=== PATIENT | female | born 1970 | race Caucasian/White ===

== ENCOUNTER 2018-07-30 10:55 | Emergency (ER) | payer MEDICAID ==
[2018-07-30 11:19] VITALS: O2SAT 100
[2018-07-30] MEDS ORDERED: DiphenhydrAMINE 50 mg/ml Inj IVP STA (13:17)
--- NOTE | 2018-07-30 13:17 | C.PDOC ---
History Of Present Illness 47 year old female with a PMHx of chronic headache presents to the ED for evaluation of headache associated with photophobia and nausea for 1 week. The patient describes the heachache as frontal that radiates to the back of the neck . She notes current symptoms are similar to typical migranes. States taking sumatriptan and ferric with minimal relief. Denies fever, chills, vision changes, numbness, weakness, trauma, and any other associated symptoms. Time Seen by Provider: 07/30/18 12:56 Chief Complaint (Nursing): Headache History Per: Patient History/Exam Limitations: no limitations Onset/Duration Of Symptoms: Days (x1 week. ) Current Symptoms Are (Timing): Still Present Associated Symptoms: Photophobia, Nausea. denies: Blurred Vision, Vomiting, Extremity Weakness Recent travel outside of the [place]: No Past Medical History Reviewed: Historical Data, Nursing Documentation, Vital Signs Vital Signs: Last Vital Signs Temp 98.6 F 07/30/18 11:18 Pulse 82 07/30/18 11:18 Resp 18 07/30/18 11:18 BP 134/87 07/30/18 11:18 Pulse Ox 100 07/30/18 11:18 - Medical History PMH: Anemia, HTN, Hyperlipidemia, Migraine Family History: States: Unknown Family Hx - Social History Hx Alcohol Use: Yes Hx Substance Use: No - Immunization History Hx Influenza Vaccination: No Hx Pneumococcal Vaccination: No Review Of Systems Except As Marked, All Systems Reviewed And Found Negative. Constitutional: Negative for: Fever, Chills Eyes: Positive for: Other (photophobia. ). Negative for: Vision Change Gastrointestinal: Positive for: Nausea. Negative for: Vomiting Musculoskeletal: Positive for: Neck Pain (secondary to headache. ) Neurological: Positive for: Headache (frontal. ). Negative for: Weakness, Numbness, Incoordination Physical Exam - Physical Exam Appears: Well, Non-toxic, No Acute Distress Skin: Warm, Dry, No Rash Head: Atraumatic, Normacephalic Eye(s): bilateral: Normal Inspection, PERRL, EOMI Ear(s): Bilateral: Normal Oral Mucosa: Moist Throat: Normal, No Erythema Neck: Normal ROM, Supple Lymphatic: Normal Exam Chest: Symmetrical Cardiovascular: Rhythm Regular, No Friction Rub, No Murmur Respiratory: Normal Breath Sounds, No Rales, No Rhonchi, No Wheezing Gastrointestinal/Abdominal: Normal Exam, Soft, No Tenderness Back: Normal Inspection, No CVA Tenderness Extremity: Normal ROM (x4), No Swelling Neurological/Psych: Oriented x3, Normal Speech, Normal Cognition, Normal Motor Gait: Steady ED Course And Treatment - Laboratory Results Result Diagrams: 07/30/18 13:35 07/30/18 13:35 O2 Sat by Pulse Oximetry: 100 (RA) Pulse Ox Interpretation: Normal Medical Decision Making Medical Decision Making: Initial plan: -Blood sent. -Benadryl -Reglan -Toradol -HCG Urine -Urinalysis Progress/Update: On re-exam, the patient reports improvement of symptoms. Lungs are CTA, heart is RRR, abdomen is soft, non-tender and the patient is tolerating PO well. Instructed to follow up with the Neuro within 1-2 days. Return if worsened. Stable for discharge home. Prescribed Crestor, Percocet, and Reglan. Advised to follow up with PMD within 2-3 days. Disposition - Disposition Referrals: Shreyas Londono MD [Staff Provider] - Wyatt De La Torre MD [Staff Provider] - Disposition: HOME/ ROUTINE Disposition Time: 15:05 Condition: GOOD Additional Instructions: Follow up with the medical doctor/clinic within 1-2 days. Return if worsened. Prescriptions: Metoclopramide [Reglan] 1 tab PO TID PRN #25 tab PRN Reason: Nausea/Vomiting Instructions: Migraine Headache (DC) Forms: [facility] ([employer]) - Clinical Impression Clinical Impression: Migraine - PA / [employer] / Resident Statement MD/DO has reviewed & agrees with the documentation as recorded. - Scribe Statement The provider has reviewed the documentation as recorded by the Scribe (Jaymie Gunn) All medical record entries made by the Scribe were at my direction and personally dictated by me. I have reviewed the chart and agree that the record accurately reflects my personal performance of the history, physical exam, medical decision making, and the department course for this patient. I have also personally directed, reviewed, and agree with the discharge instructions and disposition.
[2018-07-30 13:42] LABS: BASO # 0.1 K/uL (0.0-0.2); BASO % 0.5 % (0.0-2.0); EOS # 0.1 K/uL (0.0-0.7); EOS % 1.1 % (0.0-4.0); HEMOGLOBIN 11.5 g/dL (11.0-16.0); LYMPH % 19.1 % (20.0-40.0); MEAN CORPUSCULAR HEMOGLOBIN 29.4 pg (27.0-31.0); MEAN CORPUSCULAR HGB CONC 33.5 g/dL (33.0-37.0); MEAN PLATELET VOLUME 9.4 fL (7.2-11.7); MONO # 0.9 K/uL (0.0-0.8); MONO % 8.5 % (0.0-10.0); NEUT # 7.4 K/uL (1.8-7.0); NEUT % 70.8 % (50.0-75.0); RBC 3.9 Mil/uL (3.80-5.20); RED CELL DISTRIBUTION WIDTH 14.3 % (11.5-14.5); WHITE BLOOD COUNT 10.4 K/uL (4.8-10.8)
[2018-07-30] MEDS ORDERED: DiphenhydrAMINE 50 mg/ml Inj ONE (13:46)
[2018-07-30 13:50] LABS: HCG,QUALITATIVE URINE NEGATIVE (NEGATIVE)
[2018-07-30 13:58] LABS: SQUAMOUS EPITHIAL 2 /hpf (0-5); URINE BILIRUBIN NEGATIVE (NEGATIVE); URINE BLOOD 1+ (NEGATIVE); URINE CLARITY Clear (Clear); URINE COLOR Yellow (YELLOW); URINE GLUCOSE (UA) NORMAL (Normal); URINE LEUKOCYTE ESTERASE NEG Leu/uL (Negative); URINE PROTEIN NEGATIVE (NEGATIVE); URINE UROBILINOGEN NORMAL mg/dL (0.2-1.0)
[2018-07-30 14:09] LABS: ALB/GLOB RATIO 1.5 (1.0-2.1); ALBUMIN 4.6 g/dL (3.5-5.0); ALT/SGPT 25 U/L (9-52); AST/SGOT 31 U/L (14-36); BLOOD UREA NITROGEN 17 mg/dL (7-17); CALCIUM 9.4 mg/dl (8.6-10.4); GFR NON-AFRICAN AMERICAN > 60
[2018-07-30 15:14] VITALS: BP 143/85; PULSE 79; RESP 18; TEMP 98
== END 2018-07-30 15:27 | disposition home or self-care (01) ==
LOC: C.ER 10:55
DX: G43.909 Migraine, unspecified, not intractable, without status migrainosus (principal)
CPT/HCPCS: 80053; 81001; 81025; 84703; 85025; 96374; 96375; 99285; J1200; J1885; J2765